=== PATIENT | male | born 1975 | race Caucasian/White ===

== ENCOUNTER 2023-02-27 08:41 | Emergency (ER) | payer MEDICAID ==
[~2023-02-27] VITALS: Ht 175.3 cm; Wt 83.9 kg
[2023-02-27 08:51] VITALS: BP 136/96
[2023-02-27] MEDS ORDERED: LIDOCAINE/EPI 2% 1:100000 20 ML VIAL INJ ONE (09:10)
--- NOTE | 2023-02-27 09:13 | NUR ---
non adherent applied with roll gauze. suture set up bedside. wound irrigated
[2023-02-27] MEDS ORDERED: NON ADHERENT DRESSING TP SCH (10:25)
[2023-02-27] MEDS ORDERED: BACITRACIN OINT 500 UNITS/GM PKT TP ONE (10:25)
[2023-02-27] MEDS ORDERED: BACI-105 TP (10:48)
--- NOTE | 2023-02-27 10:58 | NUR ---
patient s/p laceration repair right forehead, condition stable d/c home with instructions afte rcare reviewed understood left er ambulatory with steady gait no pain.
[2023-02-27 11:03] VITALS: BP 130/70
== END 2023-02-27 10:58 | disposition home or self-care (01) ==
LOC: MED 08:41
DX: S01.01XA Laceration without foreign body of scalp, initial encounter (principal); Z79.899 Other long term (current) drug therapy; W18.30XA Fall on same level, unspecified, initial encounter; Y93.89 Activity, other specified; Y92.89 Other specified places as the place of occurrence of the external cause; Y99.8 Other external cause status
CPT/HCPCS: 12002; 90471; 90715; 99283; J2001

== ENCOUNTER 2023-10-25 06:56 | Emergency (ER) | payer MEDICAID ==
[~2023-10-25] VITALS: Ht 167.6 cm; Wt 69.9 kg
[~2023-10-25 06:56] MED LIST: BACI-105 TP
[2023-10-25 07:00] VITALS: BP 136/90; PULSE 105; RESP 18; TEMP 97.6; O2SAT 98
[2023-10-25] MEDS ORDERED: LIDOCAINE MPF 1% 10 MG/ML VIAL INJ ONE (08:45)
[2023-10-25 08:58] VITALS: BP 130/80; PULSE 86; RESP 20; TEMP 97; O2SAT 100
[2023-10-25] MEDS ORDERED: BACITRACIN OINT 500 UNITS/GM PKT TP ONE (09:35)
[2023-10-25 10:20] VITALS: BP 132/94; PULSE 81; RESP 20; TEMP 97.8; O2SAT 99
== END 2023-10-25 10:20 | disposition home or self-care (01) ==
LOC: MED 06:56
DX: S61.213A Laceration without foreign body of left middle finger without damage to nail, initial encounter (principal); S61.215A Laceration without foreign body of left ring finger without damage to nail, initial encounter; W26.8XXA Contact with other sharp object(s), not elsewhere classified, initial encounter; Y93.89 Activity, other specified; Y92.89 Other specified places as the place of occurrence of the external cause; Y99.8 Other external cause status
CPT/HCPCS: 12001; 90471; 90715; 99283; J2001